=== PATIENT | female | born 1950 | race Caucasian/White ===

== ENCOUNTER → 2019-12-06 09:49 | Outpatient (CLI) | payer MEDICARE, MEDICAID, SELFPAY ==
[2019-12-06 10:17] LABS: Absolute Lymphocyte Count 2.23 X10^3/uL (0.83-4.51); Absolute Neutrophil Count 3.6 X10^3/uL (2.0-7.7); Basophil# 0.06 X10^3/uL; Basophil% 0.9 % (0-1); Eosinophil# 0.18 X10^3/uL; Eosinophils% 2.7 % (0-5); Hematocrit 47.2 % (37-47); Hemoglobin 15.2 g/dL (12.0-15.0); Lymphocyte # 2.23 X10^3/ul (4.0); Mean Corp Hgb Conc 32.2 g/dL (32-36); Mean Corpuscular Hgb 29.6 pg (27.0-32.0); Mean Platelet Vol. 10.5 fl (6.2-12.0); Monocyte# 0.52 X10^3/uL; Monocyte% 7.9 % (0-10); NRBC Flagged by Analyzer 0 % (0-5); Neutrophil # 3.56 X10^3/uL (2.7-7.7); Neutrophil % 54.3 % (47-70); Platelet Count 255 K/mm3 (150-450); RBC Distribution Width CV 13.1 % (11.6-14.6); RBC Distribution Width SD 44.5 fl (35.1-43.9); Red Blood Count 5.13 M/mm3 (4.2-5.4); White Blood Count 6.6 K/mm3 (4.4-11.0)
[2019-12-06 10:47] LABS: Anion Gap 6 (5-15); BUN 11 mg/dL (7-18); BUN/Creat Ratio 11.3 RATIO (10-20); Calcium,Total 8.6 mg/dL (8.5-10.1); Chloride 106 mmol/L (98-107); Cholesterol 240 mg/dL (200); Creatinine, Serum 0.98 mg/dL (0.55-1.02); EST Glomerular Filtration Rate 60 mL/min (>60); Est Glom Filt Rate - Afr Amer 73 mL/min (>60); Glucose 110 mg/dL (74-106); High Density Lipoprotein 63 mg/dL; Potassium 3.8 mmol/L (3.5-5.1); Sodium Level 140 mmol/L (136-145); Triglycerides 201 mg/dL; Very Low Density Lipoprotein 40 mg/dL (5-40)
[2019-12-06 10:53] LABS: Vitamin D,25 Hydroxy 22.8 ng/mL
== END ==
DX: E78.2 Mixed hyperlipidemia (principal); I10 Essential (primary) hypertension; E55.9 Vitamin D deficiency, unspecified
CPT/HCPCS: 36415; 80048; 80061; 82306; 85025

== ENCOUNTER 2020-01-08 16:48 | Emergency (ER) | payer MEDICARE, MEDICAID, SELFPAY ==
[2020-01-08 16:49] VITALS: BP 146/98; PULSE 114; RESP 17; TEMP 36.8; O2SAT 98; BMI 34.9
--- NOTE | 2020-01-08 17:09 | ED.DCSUM_ITS ---
- ER Visit Summary Date of Service: 01/08/20 Chief Complaint: Left ear pain and decreased swelling History of Present Illness: The patient is a 69 F history of prior otitis externa on the left. Patient states for 1 to 2 months she had decreased hearing and some discomfort in her left ear. Denies any trauma. She was seen at a local [facility] clinic they put her on doxycycline. She said she is done with that now did not seem to help. She has multiple antibiotic allergies. She denies fever or trouble swallowing. Physical Examination: Well-appearing older female. Vital signs stable afebrile. H EENT exam right ear canal obscured by wax. Left otitis externa. No malignant otitis. The outside of the ear and neck are nontender without lymphadenopathy or redness. There is no blood. The TM cannot be visualized on the left due to swelling. Mouth poor dentition. Multiple missing and decaying teeth. Posterior pharynx normal. Neck nontender. No lymphadenopathy. Lungs clear to auscultation bilaterally. Heart regular rhythm no murmur. Abdomen soft nontender. Extremities moves all 4. Neurologically she is awake and alert. Test Results: None Emergency Department Course and Treatment: Patient be placed on Otocort eardrops 4 drops to the left ear 3 times a day. Wick will also be placed. Treatment Plan: 4 drops to the left ear 3 times a day. Aleve for pain. Follow- up with ENT if not improving. Disposition: Discharge Impression: Acute left otitis externa This note was generated with [employer] dictation software. It may contain incorrect words, spelling, and punctuation that were not noted in review of the chart prior to signing ED Disposition - Plan for ED Patient[facility] -
--- NOTE | 2020-01-08 17:11 | DCINST.ED_ITS ---
ED Disposition - Plan for ED Patient: Disposition: Home or Assisted Living Instructions: ED Otitis Externa Referrals: [facility] Greene [Primary Care Provider] - 1 Week if not improving Dmitry Hernandez MD [STAFF PHYSICIAN] - 1 Week if not improving Additional Instructions: 3 to 4 drops to your left ear 3-4 times a day. If not proving follow-up with the*clinic or Dr. Dmitry Carr of ENT. [facility] for pain. If the pain improves but the hearing does not you may need to have your ear canals irrigated for wax. You do have wax in your right ear Cerumenex eardrops she can get [id number].
[2020-01-08] MEDS: Neomycin Sulfate/Polymyxin/Hc Susp 10 ML Bottle 4 DRP OTIC (17:28)
[2020-01-08 17:29] VITALS: PULSE 76; RESP 18; O2SAT 96
== END 2020-01-08 17:39 | disposition home or self-care (01) ==
PROVIDERS: Emergency Provider Emergency Medicine
DX: H60.502 Unspecified acute noninfective otitis externa, left ear (principal); I10 Essential (primary) hypertension
CPT/HCPCS: 99282

== ENCOUNTER → 2020-11-22 10:34 | Outpatient (CLI) | payer MEDICARE, MEDICAID, SELFPAY ==
[2020-11-22 10:57] LABS: Absolute Neutrophil Count 2.7 X10^3/uL (2.0-7.7); Basophil# 0.09 X10^3/uL; Basophil% 1.6 % (0-1); Eosinophil# 0.36 X10^3/uL; Eosinophils% 6.2 % (0-5); Hematocrit 45.3 % (37-47); Hemoglobin 14.5 g/dL (12.0-15.0); Lymphocyte % 36.2 % (19-41); Mean Corpuscular Hgb 30.2 pg (27.0-32.0); Mean Corpuscular Volume 94.4 fL (81-99); Mean Platelet Vol. 10.3 fl (6.2-12.0); Monocyte% 8.6 % (0-10); NRBC Flagged by Analyzer 0 % (0-5); Neutrophil # 2.74 X10^3/uL (2.7-7.7); Neutrophil % 47.2 % (47-70); Platelet Count 249 K/mm3 (150-450); RBC Distribution Width CV 12.9 % (11.6-14.6); RBC Distribution Width SD 44.8 fl (35.1-43.9); White Blood Count 5.8 K/mm3 (4.4-11.0)
[2020-11-22 11:32] LABS: ALB/GLOB Ratio 0.9 RATIO (0.9-2.4); AST(SGOT) 18 U/L (15-37); Alanine Aminotransfer ALT/SGPT 26 U/L (13-56); Albumin, Serum 3.4 g/dL (3.2-5.0); Alkaline Phosphatase 98 U/L (45-117); Anion Gap 5 (5-15); BUN 10 mg/dL (7-18); BUN/Creat Ratio 12.1 RATIO (10-20); Calcium,Total 8.4 mg/dL (8.5-10.1); Chloride 106 mmol/L (98-107); Cholesterol 213 mg/dL (200); Creatinine, Serum 0.83 mg/dL (0.55-1.02); EST Glomerular Filtration Rate 73 mL/min (>60); Est Glom Filt Rate - Afr Amer 88 mL/min (>60); Globulin 3.7 g/dL (2.2-4.2); Glucose 101 mg/dL (74-106); High Density Lipoprotein 60 mg/dL; Potassium 4.2 mmol/L (3.5-5.1); Protein, Total 7.1 g/dL (6.4-8.2); Sodium Level 140 mmol/L (136-145); Thyroid Stim Hormone (TSH) 3.15 uIU/mL (0.358-3.74); Triglycerides 194 mg/dL; Very Low Density Lipoprotein 39 mg/dL (5-40)
== END ==
PROVIDERS: Visit Provider Nurse Practitioner Adult Health
DX: I10 Essential (primary) hypertension (principal)
CPT/HCPCS: 36415; 80053; 80061; 84443; 85025

== ENCOUNTER → 2020-12-11 11:08 | Outpatient (CLI) | payer MEDICARE, MEDICAID, SELFPAY ==
[2020-12-11 13:28] LABS: Iron 130 ug/dL (50-170); Iron Binding Capacity,Total 318 ug/dL (250-450); PERCENT IRON SATURATION 40.9 % (15.0-55.0)
[2020-12-11 13:30] LABS: Vitamin B12 325 pg/mL (211-911)
== END ==
DX: R53.83 Other fatigue (principal); E55.9 Vitamin D deficiency, unspecified
CPT/HCPCS: 36415; 82306; 82607; 83540; 83550

== ENCOUNTER 2023-04-12 20:06 | Emergency (ER) | payer MEDICARE, MEDICAID, SELFPAY ==
[2023-04-12 20:07] VITALS: BP 190/97; PULSE 105; RESP 17; TEMP 36.7; O2SAT 97; BMI 36.0
--- NOTE | 2023-04-12 20:20 | ED.RN ---
lt leg swelling. lt inner thigh red, warm to touch, pain.
--- NOTE | 2023-04-12 20:30 | EDS_ITS ---
HPI <REEES Montano - Last Filed: 04/12/23 20:44> History of Present Illness Chief Complaint: Edema Narrative Narrative: 72-year-old female has had 3 days of redness and discomfort on the left medial thigh. No trauma. She has chills but no fever. She was using a varicose vein cream on the area without improvement. She has no history of DVT/PE. No chest pain or shortness of breath. PFSH <REESE Montano - Last Filed: 04/12/23 20:44> PFSH Medical History (Updated 04/12/23 @ 20:43 by REESE Montano) Constipation Environmental allergies Hemorrhoids HTN (hypertension) Osteoarthritis Home Medications hydroxyzine HCl 25 mg tablet 25 mg PO QHS 01/08/20 [History Last Taken Unknown] multivitamin with minerals-folic acid 200 mcg chewable tablet 200 mcg PO DAILY 01/08/20 [History Last Taken Unknown] lisinopril 2.5 mg tablet 5 mg PO DAILY 11/12/22 [History Last Taken Unknown] Allergy/AdvReac Type Severity Reaction Status Date / Time ciprofloxacin [From Cipro] Allergy Hives Verified 04/12/23 20:09 Penicillins Allergy Hives Verified 04/12/23 20:09 Sulfa (Sulfonamide Allergy Hives Verified 04/12/23 20:09 Antibiotics) Family History (Updated 11/12/22 @ 14:00 by Ricarda Huntley) Father Heart disease Thyroid disorder Mother Cancer Surgical History History of cataract extraction Social History Smoking Status: Never smoker ROS <REESE Montano - Last Filed: 04/12/23 20:44> ROS ED ROS Narrative Constitutional: Positive for chills. No fever. CVS: Negative for chest pain. Respiratory: Negative for shortness of breath. Neuro: Negative for motor/sensory dysfunction. EXAM <REESE Montano - Last Filed: 04/12/23 20:44> Physical Exam Narrative Exam Narrative: CONST: Patient sitting in no acute distress. EYES: Normal inspection. NECK: Normal inspection. RESP: No respiratory distress, CTAB. CVS: Regular rate and rhythm, no murmur, no gallop. SKIN: Color normal, no rash, warm, dry, intact. EXTREMITIES: Localized erythema, warmth and tenderness of the left distal medial thigh extending down just past the knee. There is a palpable cord in the thigh. No fluctuance or crepitus. No calf tenderness. Full ROM of all joints, 2+ DP pulses. NEURO: Oriented x4. PSYCH: Normal affect. Const Vital Signs: 04/12/23 20:07 04/12/23 20:53 Temperature 98.1 F 98.1 F Temperature Source Temporal Pulse Rate 105 H 92 Respiratory Rate 17 16 Blood Pressure 190/97 H 150/89 H Blood Pressure Mean 128 109 Pulse Ox 97 98 Oxygen Delivery Method Room Air <Dr. Isaac Kilgore MD - Last Filed: 04/12/23 21:40> Physical Exam Const Vital Signs: 04/12/23 20:07 04/12/23 20:53 Temperature 98.1 F 98.1 F Temperature Source Temporal Pulse Rate 105 H 92 Respiratory Rate 17 16 Blood Pressure 190/97 H 150/89 H Blood Pressure Mean 128 109 Pulse Ox 97 98 Oxygen Delivery Method Room Air MDM <REESE Montano - Last Filed: 04/12/23 20:44> [facility] MDM Narrative Medical decision making narrative: Patient has localized swelling/erythema and tenderness of the left medial thigh concerning for possible DVT. She is hypertensive which is a chronic condition and she is asymptomatic. HR is 105 but she is not tachycardic during my exam. She has not had chest pain or shortness of breath so I am not concerned for PE. [facility] so she was treated prophylactically with Lovenox 1 mg/kg and outpatient US is arranged for tomorrow. She was advised on symptomatic care and discharged in stable condition. <Dr. Isaac Kilgore MD - Last Filed: 04/12/23 21:40> [facility] Treatment and Re-Evaluation Comments:: I have personally performed a face to face assessment of the patient and have reviewed the LUIS Note. I performed a substantive portion of the visit including all aspects of the following. My mandel findings include: History is 3 to 4 days spontaneous onset of pain, swelling, redness in the medial left thigh. No discharge or bleeding. No injury. No fevers, chills, chest pain, shortness of breath, or other systemic symptoms. No history of DVT but she does have a history of varicose veins. Exam is tenderness, erythema, some localized swelling and a palpable cord superficially in the left medial distal and middle thigh. No peripheral dependent edema or calf tenderness. Full range of motion throughout all joints all compartment soft and nondistended. Varicose veins present. Medical Decison Making we attempted to obtain a duplex ultrasound to evaluate for DVT versus SVT, but it is not available at the our the patient presents Thursday night. We are setting the patient up for an outpatient 1 in the morning, she is covered with 12 hours worth of Lovenox, and going forward we recommend baby aspirin, hot compresses until she has ultrasound and is told further. She is comfortable with that plan, we suspect superficial venous thrombosis is much more likely diagnosis here. Other additions or changes: [None] Discharge Plan Triage Chief Complaint: Edema ED Midlevel Provider: Brittany Thayer ED Provider: Isaac Kilgore Dx/Rx/DC Orders Clinical Impression: Left leg pain, Erythema of lower extremity Instructions: Understanding Deep Vein Thrombosis Prescriptions: No Action hydroxyzine HCl 25 MG tablet 25 mg PO QHS multivit with min-folic acid 200 MCG tablet,chewable 200 mcg PO DAILY lisinopril 2.5 mg tablet 5 mg PO DAILY Other Ambulatory Orders: Venous Duplex US, Unilateral (Stat) Facility: [facility] - Location: [facility] Ordered By: Brittany Thayer Primary Care Provider: Mary Jane Van Referrals: [facility] Mary Jane Bell [Primary Care Provider] - Activity Restrictions/Additional Instructions: You were given a blood thinner medication here called Lovenox that treats blood clots. Return tomorrow to have the ultrasound of your leg done to check for blood clots. Use warm compresses. Disposition Disposition: Home, Self Care Discharge Date/Time: 04/12/23 20:57
[2023-04-12] MEDS: Enoxaparin 120 MG/0.8 ML Syringe 110 MG SC (20:51)
[2023-04-12 20:53] VITALS: BP 150/89; PULSE 92; RESP 16; TEMP 36.7; O2SAT 98
== END 2023-04-12 20:57 | disposition home or self-care (01) ==
LOC: ED 20:35
PROVIDERS: Emergency Provider Emergency Medicine; Visit Provider Emergency Medicine
DX: M79.605 Pain in left leg (principal); R68.83 Chills (without fever); R60.9 Edema, unspecified; I10 Essential (primary) hypertension
CPT/HCPCS: 99282

== ENCOUNTER 2023-04-13 15:16 | Emergency (ER) | payer MEDICARE, MEDICAID, SELFPAY ==
[2023-04-13 15:18] VITALS: BP 163/88; PULSE 93; RESP 18; TEMP 35.5; O2SAT 93; BMI 37.7
--- NOTE | 2023-04-13 15:59 | EX.ED.DYSGE1 ---
HPI History of Present Illness Chief Complaint: Lower Extremity Injury Informant: patient Narrative Narrative: Patient presents secondary to left lower extremity DVT. Patient was seen in the emergency room last night with left leg pain and swelling that had started on Thursday. She states she was given a dose of Lovenox last evening and came in today for ultrasound of her leg. Scan shows clot from the femoral vein distal. She denies chest pain or shortness of breath. No recent injury or travel. No history of clots. Patient states that she has not had lab work done in quite some time and the [facility] was going to do lab work in May. [facility] Medical History Constipation Environmental allergies Hemorrhoids HTN (hypertension) Osteoarthritis Home Medications hydroxyzine HCl 25 mg tablet 25 mg PO QHS 01/08/20 [History Last Taken Unknown] multivitamin with minerals-folic acid 200 mcg chewable tablet 200 mcg PO DAILY 01/08/20 [History Last Taken Unknown] lisinopril 2.5 mg tablet 5 mg PO DAILY 11/12/22 [History Last Taken Unknown] apixaban 5 mg tablet (Eliquis) 5 mg PO BID #74 tabs 04/13/23 [Rx Last Taken Unknown] Allergy/AdvReac Type Severity Reaction Status Date / Time ciprofloxacin [From Cipro] Allergy Hives Verified 04/13/23 15:17 Penicillins Allergy Hives Verified 04/13/23 15:17 Sulfa (Sulfonamide Allergy Hives Verified 04/13/23 15:17 Antibiotics) Family History Father Heart disease Thyroid disorder Mother Cancer Surgical History History of cataract extraction Social History Smoking Status: Never smoker ROS ROS ED Constitutional Constitutional ED: Denies chills or fever(s) Eyes Eyes: Denies discharge from eye(s) ENT ENT ED: Denies discharge from eye(s), rhinorrhea or sore throat Cardiovascular Cardiovascular: Denies chest pain or palpitations Respiratory/Chest Respiratory/Chest: Denies cough or dyspnea Gastrointestinal Gastrointestinal: Denies abdominal pain, nausea or vomiting Genitourinary Genitourinary ED: Denies dysuria Musculoskeletal Musculoskeletal: Reports extremity pain; Denies back pain Integumentary Denies Abrasions or rash Neurologic Neurologic: Denies headache(s) or weakness Psychiatric Psychiatric: Denies anxiety or depression Allergic/Immunologic Allergic/Immunologic ED: Denies lip swelling or urticaria EXAM Physical Exam Const Vital Signs: 04/13/23 15:18 Temperature 96 F L Temperature Source Temporal Pulse Rate 93 Respiratory Rate 18 Blood Pressure 163/88 H Blood Pressure Mean 113 Pulse Ox 93 Oxygen Delivery Method Room Air Positive well nourished and well developed General Appearance ED: well developed HEENT Reports moist mucous membranes Eyes EOMs intact bilaterally Chest Wall inspection of chest normal and palpation of chest normal Resp normal respiratory effort and clear to auscultation bilaterally Cardio regular rate and regular rhythm GI non-tender Palpation: soft Extremity Extremity Narrative: 3+ left lower extremity edema. Mild erythema along the medial knee. MDM MDM MDM Narrative Medical decision making narrative: Patient had a venous ultrasound today that shows extensive clot in the left lower extremity. She has not had lab work done since 2019. I will repeat a CBC and chemistry studies at this time to evaluate renal function as well as platelet count before starting her anticoagulation. History & Record Review Discussion w/independent historian: Patient Lab Data Attestation: I reviewed the patient's lab results. Labs: Laboratory Results - last 24 hr 04/13/23 16:10 WBC 8.6 RBC 4.76 Hgb 13.8 Hct 42.9 MCV 90.1 MCH 29.0 MCHC 32.2 RDW Std Deviation 41.3 RDW Coeff of [place] 12.6 Plt Count 211 MPV 10.4 Immature Gran % (Auto) 0.300 Neut % (Auto) 70.1 H Lymph % (Auto) 18.9 L Charles % (Auto) 8.7 Eos % (Auto) 1.3 Baso % (Auto) 0.7 Absolute Neuts (auto) 6.0 Absolute Lymphs (auto) 1.62 Nucleated RBC % 0 Sodium 140 Potassium 4.1 Chloride 109 H Carbon Dioxide 26.0 Anion Gap 5 BUN 13 Creatinine 0.91 Estim Creat Clear Calc 73.52 Est GFR (MDRD) Af Amer 78 Est GFR (MDRD) Non-Af 65 BUN/Creatinine Ratio 14.3 Glucose 121 H Calcium 8.8 Treatment and Re-Evaluation :: CBC was normal white count 8.6 with a hemoglobin of 13.8. Platelet count is normal at 211. Chemistry studies are unremarkable with normal renal function. I do have a coupon for 30 days of Eliquis. She will be given first dose here and prescription sent to pharmacy for her. She will follow-up with [facility]. Discharge Plan Triage Chief Complaint: Lower Extremity Injury ED Provider: Tri Brooks Dx/Rx/DC Orders Clinical Impression: DVT (deep venous thrombosis) Instructions: ED Deep Vein Thrombosis (DVT) Prescriptions: New Eliquis 5 mg tablet 5 mg PO BID Qty: 74 0RF Rx Instructions: 10 mg twice a day for the first week. Then 5 mg twice a day. No Action hydroxyzine HCl 25 MG tablet 25 mg PO QHS multivit with min-folic acid 200 MCG tablet,chewable 200 mcg PO DAILY lisinopril 2.5 mg tablet 5 mg PO DAILY Primary Care Provider: [facility] Mary Jane Bell Referrals: [facility] [place],Mary Jane Greene [Primary Care Provider] - 1-2 Weeks Disposition Disposition: Home, Self Care
[2023-04-13 16:30] LABS: Absolute Lymphocyte Count 1.62 X10^3/uL (0.83-4.51); Basophil# 0.06 X10^3/uL; Basophil% 0.7 % (0-1); Eosinophil# 0.11 X10^3/uL; Eosinophils% 1.3 % (0-5); Hematocrit 42.9 % (37-47); Hemoglobin 13.8 g/dL (12.0-15.0); Lymphocyte # 1.62 X10^3/ul (0.83-4.51); Lymphocyte % 18.9 % (19-41); Mean Corp Hgb Conc 32.2 g/dL (32-36); Mean Corpuscular Volume 90.1 fL (81-99); Mean Platelet Vol. 10.4 fl (6.2-12.0); Monocyte# 0.75 X10^3/uL; Monocyte% 8.7 % (0-10); NRBC Flagged by Analyzer 0 % (0-5); Neutrophil # 6.01 X10^3/uL (2.7-7.7); Neutrophil % 70.1 % (47-70); Platelet Count 211 K/mm3 (150-450); RBC Distribution Width CV 12.6 % (11.6-14.6); RBC Distribution Width SD 41.3 fl (35.1-43.9); Red Blood Count 4.76 M/mm3 (4.2-5.4); White Blood Count 8.6 K/mm3 (4.4-11.0)
[2023-04-13 16:40] LABS: Anion Gap 5 (5-15); BUN 13 mg/dL (7-18); BUN/Creat Ratio 14.3 RATIO (10-20); Calcium,Total 8.8 mg/dL (8.5-10.1); Chloride 109 mmol/L (98-107); Creatinine, Serum 0.91 mg/dL (0.55-1.02); EST Glomerular Filtration Rate 65 mL/min (>60); Est Glom Filt Rate - Afr Amer 78 mL/min (>60); Estimated Creatinine Clearance 73.52 ml/min; Glucose 121 mg/dL (74-106); Potassium 4.1 mmol/L (3.5-5.1); Sodium Level 140 mmol/L (136-145)
[2023-04-13] MEDS: APIXABAN 5 MG TABLET 10 MG PO (17:00)
[2023-04-13 17:02] VITALS: BP 163/88; PULSE 93; RESP 18; TEMP 35.5; O2SAT 93
== END 2023-04-13 17:05 | disposition home or self-care (01) ==
LOC: ED 17:01
PROVIDERS: Emergency Provider Emergency Medicine; Visit Provider Emergency Medicine
DX: I82.402 Acute embolism and thrombosis of unspecified deep veins of left lower extremity (principal); I10 Essential (primary) hypertension; Z79.899 Other long term (current) drug therapy; Z98.49 Cataract extraction status, unspecified eye
CPT/HCPCS: 80048; 85025; 99283; A4216

== ENCOUNTER → 2023-04-13 | Outpatient (CLI) | payer MEDICARE, MEDICAID, SELFPAY ==
--- NOTE | 2023-04-13 14:19 | VDLE_ITS ---
Reason For Study: LLE Swelling RIGHT LEFT CFV is compressible, spontaneous, phasic, CFV is compressible, spontaneous, phasic, competent and demonstrates normal competent, and demonstrates normal augmentation. augmentation. Procedure GSV is dilated and NONCOMPRESSIBLE with This is a venous duplex using B-mode, color intraluminal echoes 10-15 cm from SFJ to mid flow and spectral Doppler. calf. Exam performed in department. Distal thigh ASV is dilated and The exam was diagnostic. NONCOMPRESSIBLE to prox calf. The study was technically difficult. SFV is compressible at Prox and Mid - dilated A preliminary report was called and/or faxed and NONCOMPRESSIBLE at the distal portion of to [facility] ED. the vessel. Acute deep vein thrombosis is noted in the FV. It is dilated and NONCOMPRESSIBLE. Acute deep vein thrombosis is noted in the POP V. It is dilated and NONCOMPRESSIBLE. Acute deep vein thrombosis is noted in the Gastrocnemius V. It is dilated and NONCOMPRESSIBLE. Acute deep vein thrombosis is noted in the T/P Trunk. It is dilated and NONCOMPRESSIBLE. Acute deep vein thrombosis is noted in the PTV. It is dilated and NONCOMPRESSIBLE. LT PerV is compressible. VL/Venous Duplex US, Unilateral Interpretation Summary Acute deep vein thrombosis is noted in the left femoral vein, popliteal vein, g astrocnemius vein, tibioperoneal trunk vein, posterior tibial vein. Acute superficial vein thrombosis noted in left great saphenous vein Ordering Physician: Brittany Thayer Referring Physician: SALLY ALVAREZ Performed By: Vik Scott RVT
== END | disposition home or self-care (01) ==
PROVIDERS: Referring Provider Physician Assistant; Visit Provider Physician Assistant
DX: M79.89 Other specified soft tissue disorders (principal)
CPT/HCPCS: 93971

== ENCOUNTER → 2023-08-04 | Outpatient (CLI) | payer MEDICARE, MEDICAID, SELFPAY ==
[2023-08-04 17:05] LABS: Absolute Lymphocyte Count 1.97 X10^3/uL (0.83-4.51); Basophil# 0.07 X10^3/uL; Basophil% 1.2 % (0-1); Eosinophil# 0.25 X10^3/uL; Eosinophils% 4.4 % (0-5); Hematocrit 47.2 % (37-47); Hemoglobin 15.2 g/dL (12.0-15.0); Lymphocyte # 1.97 X10^3/ul (0.83-4.51); Lymphocyte % 34.4 % (19-41); Mean Corp Hgb Conc 32.2 g/dL (32-36); Mean Corpuscular Hgb 29.2 pg (27.0-32.0); Mean Corpuscular Volume 90.6 fL (81-99); Mean Platelet Vol. 10.8 fl (6.2-12.0); Monocyte# 0.42 X10^3/uL; Monocyte% 7.3 % (0-10); NRBC Flagged by Analyzer 0 % (0-5); Neutrophil # 3.01 X10^3/uL (2.7-7.7); Neutrophil % 52.5 % (47-70); Platelet Count 246 K/mm3 (150-450); RBC Distribution Width CV 13.1 % (11.6-14.6); RBC Distribution Width SD 43.6 fl (35.1-43.9); Red Blood Count 5.21 M/mm3 (4.2-5.4); White Blood Count 5.7 K/mm3 (4.4-11.0)
[2023-08-04 17:35] LABS: AST(SGOT) 22 U/L (15-37); Alanine Aminotransfer ALT/SGPT 23 U/L (13-56); Albumin, Serum 3.6 g/dL (3.2-5.0); Alkaline Phosphatase 98 U/L (45-117); Anion Gap 8 (5-15); BUN 15 mg/dL (7-18); BUN/Creat Ratio 15.5 RATIO (10-20); Calcium,Total 8.9 mg/dL (8.5-10.1); Chloride 105 mmol/L (98-107); Cholesterol 226 mg/dL (200); Creatinine, Serum 0.97 mg/dL (0.55-1.02); EST Glomerular Filtration Rate 60 mL/min (>60); Est Glom Filt Rate - Afr Amer 73 mL/min (>60); Globulin 3.6 g/dL (2.2-4.2); Glucose 104 mg/dL (74-106); High Density Lipoprotein 61 mg/dL; Potassium 4.1 mmol/L (3.5-5.1); Protein, Total 7.2 g/dL (6.4-8.2); Sodium Level 138 mmol/L (136-145); Thyroid Stim Hormone (TSH) 3.09 uIU/mL (0.358-3.74); Triglycerides 154 mg/dL; Very Low Density Lipoprotein 31 mg/dL (5-40)
[2023-08-04 17:46] LABS: Hemoglobin A1c 5.6 % (3.8-5.6)
[2023-08-04 23:03] LABS: Vitamin D,25 Hydroxy 16.7 ng/mL
== END | disposition home or self-care (01) ==
LOC: LABSPEC 13:41
PROVIDERS: Visit Provider Nurse Practitioner Family
DX: Z13.1 Encounter for screening for diabetes mellitus (principal); I10 Essential (primary) hypertension; E78.2 Mixed hyperlipidemia; E55.9 Vitamin D deficiency, unspecified
CPT/HCPCS: 36415; 80053; 80061; 82306; 83036; 84443; 85025

== ENCOUNTER → 2024-06-14 | Outpatient (CLI) | payer MEDICARE, MEDICAID, SELFPAY ==
[2024-06-14 16:49] LABS: Basophil# 0.06 X10^3/uL; Basophil% 1.1 % (0-1); Eosinophil# 0.19 X10^3/uL; Eosinophils% 3.4 % (0-5); Hematocrit 42.4 % (37-47); Hemoglobin 13.7 g/dL (12.0-15.0); Lymphocyte % 33.6 % (19-41); Mean Corp Hgb Conc 32.3 g/dL (32-36); Mean Corpuscular Hgb 29.5 pg (27.0-32.0); Mean Corpuscular Volume 91.2 fL (81-99); Mean Platelet Vol. 10.4 fl (6.2-12.0); Monocyte# 0.49 X10^3/uL; Monocyte% 8.7 % (0-10); NRBC Flagged by Analyzer 0 % (0-5); Neutrophil # 3.02 X10^3/uL (2.7-7.7); Neutrophil % 53.2 % (47-70); Platelet Count 228 K/mm3 (150-450); RBC Distribution Width CV 12.9 % (11.6-14.6); RBC Distribution Width SD 42.9 fl (35.1-43.9); Red Blood Count 4.65 M/mm3 (4.2-5.4); White Blood Count 5.7 K/mm3 (4.4-11.0)
[2024-06-14 18:03] LABS: ALB/GLOB Ratio 1.4 RATIO (0.9-2.4); AST(SGOT) 18 U/L (<=31); Alanine Aminotransfer ALT/SGPT 14 U/L (<=34); Albumin, Serum 3.9 g/dL (3.4-4.8); Alkaline Phosphatase 112 U/L (35-104); Anion Gap 11 (5-15); BUN 12 mg/dL (4-19); BUN/Creat Ratio 12.9 RATIO (10-20); Calcium,Total 8.8 mg/dL (7.6-11.0); Carbon Dioxide 25.9 mmol/L (21.0-32.0); Chloride 103 mmol/L (98-108); Creatinine, Serum 0.94 mg/dL (0.70-1.20); EST Glomerular Filtration Rate 64 (>60); Globulin 2.7 g/dL (2.2-4.2); Glucose 101 mg/dL (70-99); Protein, Total 6.7 g/dL (5.9-8.4); Sodium Level 140 mmol/L (133-145); Total Bilirubin 1.04 mg/dL (0.00-1.30)
[2024-06-14 18:19] LABS: Cholesterol 191 mg/dL (<=200); High Density Lipoprotein 55 mg/dL; Low Density Lipoprotein Calc. 111 mg/dL; Triglycerides 127 mg/dL; Very Low Density Lipoprotein 25 mg/dL (5-40); cholesterol:hdl ratio screen 3.47
== END | disposition home or self-care (01) ==
LOC: VSLAB 13:33
PROVIDERS: PCP Nurse Practitioner Family; Visit Provider Nurse Practitioner Family
DX: E78.2 Mixed hyperlipidemia (principal); I10 Essential (primary) hypertension; E55.9 Vitamin D deficiency, unspecified
CPT/HCPCS: 36415; 80053; 80061; 82306; 84443; 85025